=== PATIENT | female | born 2000 | race Hispanic/Latino ===

== ENCOUNTER 2024-05-16 06:43 | Day surgery (SDC) | payer MEDICAID, SELFPAY ==
[2024-05-16 07:28] VITALS: BMI 23.3
[2024-05-16] MEDS ORDERED: Acetaminophen 500 MG TAB PO PRN (07:34)
[2024-05-16] MEDS ORDERED: Ondansetron PF 4 MG/2 ML Vial IVP PRN (07:34)
[2024-05-16] MEDS ORDERED: Promethazine HCl 25 MG/ML VIAL IM PRN (07:34)
[2024-05-16] MEDS ORDERED: hydrALAZINE 20 MG/ML VIAL SLOW IVP PRN (07:34)
[2024-05-16] MEDS: Ibuprofen 800 MG TAB PO SCH (08:03)
[2024-05-16 08:34] LABS: Amphetamine Not Detected (NotDetected); Barbiturates Screen Not Detected (NotDetected); Benzodiazepine Screen Not Detected (NotDetected); Cocaine Metabolite Screen Not Detected (NotDetected); Methadone Not Detected (NotDetected); Methamphetamine Not Detected (NotDetected); Opiate Screen Detected (NotDetected); Oxycodone Screen Not Detected (NotDetected); Phencyclidine (PCP) Not Detected (NotDetected); THC/Cannabinoid Screen Not Detected (NotDetected); Tricyclic Screen Not Detected (NotDetected)
[2024-05-16 09:02] LABS: HBsAg Index 0.18 S/CO (0-0.99); HIV (1/2) Antibody/Antigen Non-Reactive (NonReactive); HIV 1/2 INDEX 0.07 S/CO (<1.00); Hep B Surf Ag - L&D Non-Reactive S/CO (NonReactive)
[2024-05-16 09:03] LABS: Syphilis Antibody Nonreactive (Nonreactive); Syphilis Antibody Index 0.06 S/CO (<1.00 Non-Reactive)
[2024-05-19 21:13] LABS: CMV DNA-PCR Test Negative (Negative)
[2024-05-20 00:37] LABS: HSV 1 - DNA Negative (Negative); HSV 2 - DNA Negative (Negative)
== END 2024-05-16 10:10 | disposition home or self-care (01) ==
LOC: INTOOBSV 06:43 → CSHSDC 06:43 → CSHLD 06:43 → UNDOADMOB 06:43 → UNDODISOB 10:10 → CSHSDC 10:10 → EDSTATUS 05-18 15:06
PROVIDERS: ATTEND Obstetrics & Gynecology
DX: O03.9 Complete or unspecified spontaneous abortion without complication (principal)
CPT/HCPCS: 36415; 80306; 86762; 86777; 86780; 86850; 86900; 86901; 87340; 87389; 87497; 87529; 99285